=== PATIENT | female | born 1985 | race Caucasian/White ===

== ENCOUNTER 2017-09-14 05:59 | Day surgery (SDC) | payer MEDICAID ==
[2017-09-14] MEDS: CEFAZOLIN 2 GM/50 ML (PMX) 50 ML IVPB (06:00)
[2017-09-14] MEDS: LACTATED RINGER'S 1,000 ML IV* (06:00)
[2017-09-14] MEDS ORDERED: NEOSTIGMINE 3 MG/3 ML SYRINGE (06:19)
[2017-09-14] MEDS ORDERED: FENTAnyl 50 MCG/ML VIAL (06:19)
[2017-09-14] MEDS ORDERED: ROCURONIUM 50 MG INJ (06:19)
[2017-09-14] MEDS ORDERED: PROPOFOL 20 ML (06:19)
[2017-09-14] MEDS ORDERED: GLYCOPYRROLATE 0.4 MG INJ (06:19)
[2017-09-14] MEDS ORDERED: MIDAZOLAM 1 MG/ML 2 ML INJ (06:19)
[2017-09-14] MEDS ORDERED: DEXAMETHASONE 4 MG/ML 1 ML INJ (06:26)
[2017-09-14] MEDS ORDERED: ONDANSETRON 4 MG INJ (06:27)
[2017-09-14] MEDS ORDERED: EPHEDrine SULFATE 50 MG/5 ML SYG IV (06:30)
[2017-09-14] MEDS ORDERED: DIPHENHYDRAMINE 50 MG INJ IV (06:30)
[2017-09-14] MEDS ORDERED: MEPERIDINE 25 MG INJ IV (06:30)
[2017-09-14] MEDS ORDERED: hydrALAzine 20 MG INJ IV (06:30)
[2017-09-14] MEDS ORDERED: FENTAnyl 50 MCG/ML VIAL IV ×2 (06:30)
[2017-09-14] MEDS ORDERED: HYDROmorphONE (0.2 MG/ML) 10ML SYG IV ×3 (06:30)
[2017-09-14] MEDS ORDERED: morphine (1 MG/ML) 10ML SYRINGE IV ×3 (06:30)
[2017-09-14] MEDS ORDERED: ATROPINE 1 MG/10 ML SYRINGE IV (06:30)
[2017-09-14] MEDS ORDERED: ONDANSETRON 4 MG INJ IV (06:30)
[2017-09-14] MEDS ORDERED: MIDAZOLAM 1 MG/ML 2 ML INJ IV (06:30)
[2017-09-14] MEDS ORDERED: LABETALOL HCL 20MG INJ IV (06:30)
[2017-09-14] MEDS ORDERED: OXYCODONE/ACETAMINOPHEN (5/325) TAB PO ×2 (06:30)
[2017-09-14] MEDS ORDERED: LIDOCAINE 100 MG SYRINGE (07:00)
[2017-09-14] MEDS ORDERED: CEFAZOLIN 1 GM INJ (07:39)
[2017-09-14] MEDS ORDERED: KETOROLAC 30 MG INJ (08:03)
[2017-09-14] MEDS: LIDOCAINE 1%/EPI 30 ML INJ (08:59)
== END 2017-09-14 10:55 | disposition home or self-care (01) ==
LOC: SDS 05:59
DX: Z30.2 Encounter for sterilization (principal)
CPT/HCPCS: 58565